=== PATIENT | male | born 1965 | race Caucasian/White ===

== ENCOUNTER → 2019-07-30 08:52 | Outpatient (CLI) | payer OTHER, SELFPAY ==
--- NOTE | ~2019-07-30 | XR_ITS ---
EXAMINATION: XR shoulder RT min 2V INDICATION: Chronic right shoulder pain TECHNIQUE: Four views of the right shoulder are submitted. COMPARISON: None FINDINGS: Normal alignment. No fracture. Glenohumeral and acromioclavicular joint spaces are normal. Soft tissues are unremarkable. IMPRESSION: No acute osseous abnormality. Reviewed, dictated and finalized at location A.
== END ==
PROVIDERS: PCP Physician Assistant; Visit Provider Physician Assistant
DX: M25.511 Pain in right shoulder (principal)
CPT/HCPCS: 73030

== ENCOUNTER 2020-02-20 10:22 | Emergency (ER) | payer OTHER, SELFPAY ==
[2020-02-20 10:28] VITALS: BP 142/94; PULSE 83; RESP 18; TEMP 36.5; O2SAT 100
--- NOTE | 2020-02-20 11:43 | ED.NAVMDI ---
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 Patient states he has 1/2-week history of first nausea & vomiting x2- 3/day at onset only- that is since resolved. This is associated with diarrhea now mostly loose stools x1/day, the last yesterday. In addition he has noted the onset of her pink, itchy, mostly flat rash on his buttocks, that is unlike prior urticaria, seems to be extending slightly upwards centrally, downwards his right posterior thigh. No fever, abdominal pain, prior surgeries, travel history, loss of taste/smell, cough, shortness of breath; he had a prior normal colonoscopy showing diverticulosis . Related Data Home Medications Medication Instructions Recorded Confirmed omeprazole magnesium 20 mg 20 mg PO DAILY 06/09/19 02/20/20 tablet,delayed release Allergies Allergy/AdvReac Type Severity Reaction Status Date / Time gluten Allergy Unknown rash and Verified 02/20/20 10:47 GI issues shellfish derived AdvReac Intermediate Rash Verified 02/20/20 10:47 Review of Systems Review of Systems: Narrative: The patient has been informed that they may have pre-hypertension or Hypertension based on a BP reading in the department. I recommend that the patient call the primary care provider listed on their discharge instructions or a physician of their choice this week to arrange follow up for further evaluation of possible pre-hypertension or Hypertension General/Constitutional: No weight loss,fever Eyes: N0: Redness,discharge Ears/Nose/Throat: No: Epistaxis,ear discharge Respiratory: Denies: Hemoptysis Gastrointestinal: No Vomiting, Bleeding-rectal now Skin: No Lumps, REPORTS eruption Neurologic: No Focal Weakness,Sz Hematologic: Denies: Petechiae/Purpura Psychiatric: No: Suicida ideationl All Other Systems: Reviewed and Negative [facility] Social History Social History Smoking status: Former smoker Smoking end date: 05/18/89 Alcohol intake: current Drinks per week: 4 Substance use: never Substance use type: does not use Gender identity (if verbalized by the patient): Male Comments At time of signature, agree with nursing past medical, surgical, social and family history. There is no relevant family history pertinent to the presenting complaint Exam Narrative: Exam Narrative: General Appearance: Well appearing, Conjunctiva clear Mouth/Throat: Normal appearing, Normal lips, Supple Respiratory: Airway patent, No respiratory distress Abdomen: Soft, Musculoskeletal: Full strength Skin: Warm, Dry blanching, mostly macular & MP eruption of posterior waist with definite border and occ satellite lesion on upper and lower borders. Neurological: A&O x3, Normal affect Course Vital Signs Vital signs: Vital Signs Temperature 97.7 F 02/20/20 10:28 Pulse Rate 83 02/20/20 10:28 Respiratory Rate 18 02/20/20 10:28 Blood Pressure 142/94 H 02/20/20 10:28 Pulse Oximetry 100 02/20/20 10:28 Temperature 97.7 F 02/20/20 10:28 Pulse Rate 83 02/20/20 10:28 Respiratory Rate 18 02/20/20 10:28 Blood Pressure 142/94 H 02/20/20 10:28 Pulse Oximetry 100 02/20/20 10:28 MDM - Nausea/Vomiting/Diarrhea Lab Data Labs: Influenza A Screen Negative Reference Range: Negative Influenza B Screen Negative Reference Range: Negative Discharge Plan Discharge Clinical Impression: Rash Patient Disposition: Home, Self-Care Condition: Stable Instructions: Cellulitis (ED) Additional Instructions: Stop clindamycin if diarrhea reccurs, keep photo log of area Get/
== END 2020-02-20 11:30 | disposition home or self-care (01) ==
PROVIDERS: Emergency Provider Emergency Medicine; PCP Family Medicine
DX: R21 Rash and other nonspecific skin eruption (principal); Z87.891 Personal history of nicotine dependence
CPT/HCPCS: 87804; 99213; G0463

== ENCOUNTER 2020-02-21 06:55 | Outpatient (NON) | payer OTHER, SELFPAY ==
[2020-02-21 18:17] LABS: SARS-CoV-2 RNA PCR Negative
== END 2020-02-21 06:56 ==
PROVIDERS: PCP Family Medicine; Visit Provider Emergency Medicine
DX: Z20.828 Contact with and (suspected) exposure to other viral communicable diseases (principal); R19.7 Diarrhea, unspecified
CPT/HCPCS: 87635; C9803; U0003

== ENCOUNTER 2020-04-02 09:36 | Outpatient (CLI) | payer OTHER, SELFPAY ==
[2020-04-02 10:12] LABS: Basophils Percent Auto 0.5 % (0.2-1.2); Eosinophils Absolute Auto 0.2 K/mm3 (0-0.3); Eosinophils Percent Auto 2.1 % (0-4.4); Hemoglobin 14.8 g/dL (14.0-18.0); Immature Granulocyte Absolute 0.02 K/mm3 (0.00-0.031); Immature Granulocyte Percent A 0.2 % (0-0.5); Lymphocytes Absolute Auto 1.68 K/mm3 (0.9-3.2); Lymphocytes Percent Auto 20.6 % (18.3-44.2); Mean Corpuscular HGB Conc 32.9 g/dl (32-36); Mean Corpuscular Hemoglobin 26.4 pg (26-34); Mean Corpuscular Volume 80.4 fl (80-100); Mean Platelet Volume 9.5 fl (7.4-10.4); Monocytes Absolute Auto 0.5 K/mm3 (0.1-0.6); Monocytes Percent Auto 5.9 % (2.6-8.5); Neutrophils Absolute Auto 5.8 K/mm3 (1.3-6.7); Neutrophils Percent Auto 70.7 % (45.5-73.1); Platelet Count Result 343 k/mm3 (150-375); Red Cell Distribution Width 15.6 % (11.5-14.5); White Blood Count 8.1 K/mm3 (4.5-10.0)
[2020-04-02 10:14] LABS: Add Urine Microscopic? NO; Appearance Urine Clear (Clear); Bilirubin Urine Negative (Negative); Blood Urine Negative (Negative); Color Urine Straw (Yellow); Glucose Urine UA Negative (Negative); Ketones Urine Negative (Negative); Leukocyte Esterase Ur Negative LEU/UL (NEGATIVE); Nitrate Urine Negative (Negative); Protein Urine Negative (Negative); Specific Grav Ur 1.008 (1.001-1.035); Urobilinogen Urine Negative mg/dL (<2.0)
[2020-04-02 10:24] LABS: Alanine Aminotransferase 24 U/L (4-50); Albumin Level 4.2 g/dL (3.5-5.1); Alkaline Phosphatase 70 U/L (38-126); Anion Gap 9 mmol/L (8-16); Aspartate Amino Transferase 27 U/L (17-59); Blood Urea Nitrogen 12 mg/dL (9-20); Calcium 9.4 mg/dL (8.4-10.2); Carbon Dioxide 30 mmol/L (22-30); Chloride 99 mmol/L (98-107); Cholesterol 191 mg/dL (0-200); Estimated Glomerular Filt Rate > 60; Glucose 95 mg/dL (75-110); HDL Direct 40 mg/dL; Potassium 4.4 mmol/L (3.4-5.0); Sodium 138 mmol/L (137-145); Triglycerides 82 mg/dL (<150)
[2020-04-02 10:35] LABS: LDL Cholesterol Direct 140 mg/dL
[2020-04-02 10:55] LABS: Prostate Specific Antigen 0.4 ng/mL (< OR = 4.0); Thyroid Stimulating Hormone 0.813 uIU/mL (0.465-4.680)
[2020-04-02 11:39] LABS: Folic Acid > 20.0 ng/mL (2.76->20)
== END 2020-04-02 09:37 | disposition home or self-care (01) ==
LOC: ANHLAB 09:38
PROVIDERS: PCP Family Medicine; Visit Provider Physician Assistant
DX: Z00.00 Encounter for general adult medical examination without abnormal findings (principal); R20.2 Paresthesia of skin
CPT/HCPCS: 36415; 80053; 80061; 81003; 82607; 82746; 84153; 84443; 85025; G0103

== ENCOUNTER 2020-07-23 10:03 | Outpatient (CLI) | payer OTHER, SELFPAY | END 2020-07-23 10:04 | disposition home or self-care (01) | LOC: ANHCOVIDVC 10:03 | PROVIDERS: PCP Family Medicine | DX: Z23 Encounter for immunization (principal) | CPT/HCPCS: 0001A; 91300 ==

== ENCOUNTER 2020-08-13 09:57 | Outpatient (CLI) | payer OTHER, SELFPAY | END 2020-08-13 09:58 | disposition home or self-care (01) | LOC: ANHCOVIDVC 09:57 | PROVIDERS: PCP Family Medicine | DX: Z23 Encounter for immunization (principal) | CPT/HCPCS: 0002A; 91300 ==

== ENCOUNTER 2020-12-31 10:03 | Outpatient (CLI) | payer OTHER, SELFPAY ==
[2020-12-31 10:36] LABS: Alanine Aminotransferase 17 U/L (4-50); Albumin Level 4.2 g/dL (3.5-5.1); Alkaline Phosphatase 56 U/L (38-126); Anion Gap 4 mmol/L (8-16); Aspartate Amino Transferase 21 U/L (17-59); Bilirubin,Total 0.6 mg/dL (0.2-1.3); Blood Urea Nitrogen 8 mg/dL (9-20); Calcium 8.5 mg/dL (8.4-10.2); Carbon Dioxide 25 mmol/L (22-30); Chloride 106 mmol/L (98-107); Cholesterol 170 mg/dL (0-200); Estimated Glomerular Filt Rate > 60; Glucose 95 mg/dL (65-110); HDL Direct 39 mg/dL; Potassium 4.1 mmol/L (3.4-5.0); Sodium 135 mmol/L (137-145); Triglycerides 78 mg/dL (<150)
[2020-12-31 10:47] LABS: LDL Cholesterol Direct 99 mg/dL
== END 2020-12-31 10:04 | disposition home or self-care (01) ==
LOC: ANHLAB 10:05
PROVIDERS: PCP Family Medicine; Visit Provider Physician Assistant
DX: E78.00 Pure hypercholesterolemia, unspecified (principal); K21.9 Gastro-esophageal reflux disease without esophagitis; I10 Essential (primary) hypertension
CPT/HCPCS: 36415; 80053; 80061

== ENCOUNTER 2021-03-06 11:44 | Emergency (ER) | payer OTHER, SELFPAY ==
[2021-03-06 12:01] VITALS: BP 128/85; PULSE 105; RESP 18; TEMP 38; O2SAT 100
--- NOTE | 2021-03-06 12:09 | ED.NAVMDI ---
HPI - Nausea/Vomiting/Diarrhea General Chief complaint: Nausea/Vomiting/Diarrhea Stated complaint: Vomiting,Diarhea,Body Aches Time Seen by Provider: 03/06/21 12:09 Source: patient Mode of arrival: ambulatory Limitations: no limitations History of Present Illness HPI Narrative: Donte Monaco is a 55 yo male with a PMH of GERD, hypertension, who comes to [facility] with dry cough that prior , has nausea vomiting diarrhea and a fever. States he feels terrible and has had symptoms for 2 days-he was exposed to someone at work that had Covid but he has been vaccinated for both Covid and flu Related Data Allergies Allergy/AdvReac Type Severity Reaction Status Date / Time gluten Allergy Unknown rash and Verified 03/06/21 12:28 GI issues Review of Systems Review of Systems: CONSTITUTIONAL: Denies fever, chills, sweats. EYES: Denies visual changes, redness, discharge. ENT: Denies rhinorrhea, has congestion, has sore throat, otalgia. CARDIOVASCULAR: Denies chest pain, palpitations, edema. RESPIRATORY: Denies dyspnea, wheezing, has cough GASTROINTESTINAL: Denies abdominal pain, has nausea, has vomiting, has diarrhea. GENITOURINARY: Denies dysuria, hematuria, abnormal discharge SKIN: Denies rash or itching. NEUROLOGIC: Denies numbness, or focal weakness. PSYCHIATRIC: Denies anxiety or depression. PMFSH Past Medical History Medical History Diverticulitis Essential hypertension GERD (gastroesophageal reflux disease) Social History Social History Smoking packs per day: 0.5 Smoking cigarettes per day: 10.0 Years smoked: 15 Smoking pack-years: 7.50 Smoking status: Former smoker Tobacco type: cigarettes Second hand tobacco smoke exposure: No Smoking end date: 05/18/89 Alcohol intake: former Drinks per week: 4 Substance use: never Substance use type: does not use Gender identity (if verbalized by the patient): Male Sexual Orientation (if Verbalized by the Patient): Straight or Heterosexual Comments At time of signature, I agree with nursing past medical, surgical, social and family history. There is no relevant family history pertinent to the presenting complaint. Exam Narrative: GENERAL: This is a well-nourished, well-developed patient, in mild distress. Has myalgias generally not feeling well HEAD: normocephalic, atraumatic. EYES:Sclera clear/white. Vision is grossly intact. EARS: External ears normal, auditory canals erythema and without drainage, TMs normal without perforation. Hearing grossly intact. NOSE: External nose normal without nasal discharge, nares with redness, no rhinorrhea. THROAT: Mucous membranes moist, posterior pharynx erythema NECK: Neck supple, non-tender CARDIOVASCULAR: Tachycardia rate and rhythm without murmurs, gallops, or rubs. RESPIRATORY: Clear to auscultation. Breath sounds equal bilaterally. No wheezes, rales, or rhonchi. GASTROINTESTINAL: Abdomen soft, non-tender, good bowel sounds SKIN: warm, intact with no suspicious lesions or rash, good texture and turgor. NEURO: awake, alert, and oriented to person, place and time. There were no obvious focal neurologic abnormalities. Steady gait EXTREMITIES: Normal range of motion. BACK: Nontender without deformity Course Course Emergency Course: Patient comes to [facility] with complaints of abdominal discomfort general myalgias fever nausea vomiting and diarrhea he has a dry cough that is somewhat resolved Patient test positive for Covid Patient test negative for flu Started on steroids, Tessalon, Zofran, Imodium Work excuse given Vital Signs Vital signs: Vital Signs Temperature 100.4 F H 03/06/21 12:01 Pulse Rate 105 H 03/06/21 12:01 Respiratory Rate 18 03/06/21 12:01 Blood Pressure 128/85 03/06/21 12:01 Pulse Oximetry 100 03/06/21 12:01 Temperature 100.4 F H 03/06/21 12:01 Pul
== END 2021-03-06 12:41 | disposition home or self-care (01) ==
PROVIDERS: Emergency Provider Nurse Practitioner; PCP Family Medicine
DX: U07.1 COVID-19 (principal); K21.9 Gastro-esophageal reflux disease without esophagitis; I10 Essential (primary) hypertension; F17.210 Nicotine dependence, cigarettes, uncomplicated
CPT/HCPCS: 87426; 99213; C9803; G0463

== ENCOUNTER 2021-03-16 16:12 | Emergency (ER) | payer OTHER, SELFPAY ==
--- NOTE | 2021-03-16 16:17 | ED.URI ---
HPI - URI/Sore Throat General Chief Complaint: Upper Respiratory Infection Stated Complaint: covid symptoms Time Seen by Provider: 03/16/21 16:17 Source: patient, family and RN notes reviewed Mode of arrival: ambulatory Limitations: no limitations History of Present Illness HPI Narrative: 55 yo male presents to the [facility] after testing positive for covid 10 days ago with C/O continued fatigue. Patient states that he is feeling better than he did 10 days ago. Had not run a fever in about 8 days. Had followed up with his primary who prescribed nebulizer treatments and a additional cough pills. Patient states that he thought that once 10 to 14 days has passed that he would be feeling all better. Still no smell, decreased taste, states the fatigue is the worst. Everything else is better. Denies any chest pain, abdominal pain. Related Data Allergies Allergy/AdvReac Type Severity Reaction Status Date / Time gluten Allergy Unknown rash and Verified 03/16/21 17:20 GI issues Review of Systems Review of Systems: All systems reviewed & are unremarkable except as noted in HPI and below Constitutional: Constitutional: Reports no additional constitutional complaints, Denies chills and Denies fever(s) Eyes: Eyes: Reports no additional eye complaints ENT: Reports system reviewed and no additional complaints, except as documented Cardiovascular: Cardiovascular: Reports no additional cardiovascular complaints and Denies chest pain Respiratory: Respiratory: Reports no additional respiratory complaints, Denies cough and Denies dyspnea Gastrointestinal: Gastrointestinal: Reports no additional gastrointestinal complaints, Denies abdominal pain, Denies diarrhea, Denies nausea and Denies vomiting Musculoskeletal: Musculoskeletal: Reports no additional musculoskeletal complaints Integumentary/Breasts: Skin/Breast: Reports system reviewed and no additional complaints, except as docu Neurologic: Reports system reviewed and no additional complaints, except as documented Psychiatric: Psychiatric: Reports no additional psychiatric complaints Endocrine: Endocrine: Reports as per HPI and Reports fatigue Allergic/Immunologic: Allergic/Immunologic: Reports no additional allergic/immunologic complaints [facility] Past Medical History Medical History Diverticulitis Essential hypertension GERD (gastroesophageal reflux disease) Social History Social History Smoking packs per day: 0.5 Smoking cigarettes per day: 10.0 Years smoked: 15 Smoking pack-years: 7.50 Smoking status: Former smoker Tobacco type: cigarettes Second hand tobacco smoke exposure: No Smoking end date: 05/18/89 Alcohol intake: former Drinks per week: 4 Substance use: never Substance use type: does not use Gender identity (if verbalized by the patient): Male Sexual Orientation (if Verbalized by the Patient): Straight or Heterosexual Comments At the time of my signature, I reviewed and agree with the nursing past medical, surgical, social, and family history. There is no relevant family history pertinent to the patient complaint. Exam Const: General: healthy appearing, no acute distress and alert Nutritional Appearance: well nourished Orientation/consciousness: patient oriented x3 Limitations: no limitations HENMT: Head: normal to inspection Ears: external ears normal, TM's normal bilaterally and EAC's normal Eyes: Conjunctivae: conjunctivae normal Pupils: Equal, round and reactive pupils present Neck: Neck: normal visual inspection, no lymphadenopathy and no meningeal signs Chest: Chest palpation & inspection: normal inspection of the chest Resp: Effort & Inspection: normal respiratory effort and no use of accessory muscles Auscultation: clear to auscultation bilaterally, no crackles, no rales, no rhonchi and no wheezes Cardio: Rate
[2021-03-16 16:22] VITALS: BP 118/88; PULSE 100; RESP 18; TEMP 36.8; O2SAT 98
== END 2021-03-16 16:50 | disposition home or self-care (01) ==
PROVIDERS: Emergency Provider Nurse Practitioner; PCP Family Medicine
DX: R53.83 Other fatigue (principal); U09.9 Post COVID-19 condition, unspecified; Z87.891 Personal history of nicotine dependence; I10 Essential (primary) hypertension; K21.9 Gastro-esophageal reflux disease without esophagitis
CPT/HCPCS: 99213; G0463

== ENCOUNTER 2021-07-12 10:32 | Outpatient (CLI) | payer OTHER, SELFPAY ==
[2021-07-12 10:53] LABS: Hemoglobin 12.2 g/dL (14.0-18.0); Mean Corpuscular HGB Conc 32.1 g/dl (32-36); Mean Corpuscular Hemoglobin 26.5 pg (26-34); Mean Corpuscular Volume 82.6 fl (80-100); Mean Platelet Volume 9.5 fl (7.4-10.4); Platelet Count Result 292 k/mm3 (150-375); Red Cell Distribution Width 14.6 % (11.5-14.5); White Blood Count 6.1 K/mm3 (4.5-10.0)
[2021-07-12 10:56] LABS: Add Urine Microscopic? NO; Appearance Urine Clear (Clear); Bilirubin Urine Negative (Negative); Blood Urine Negative (Negative); Color Urine Straw (Yellow); Glucose Urine UA Negative (Negative); Ketones Urine Negative (Negative); Leukocyte Esterase Ur Negative LEU/UL (NEGATIVE); Nitrate Urine Negative (Negative); Protein Urine Negative (Negative); Specific Grav Ur 1.005 (1.001-1.035); Urobilinogen Urine Negative mg/dL (<2.0)
[2021-07-12 11:14] LABS: Alanine Aminotransferase 23 U/L (4-50); Alkaline Phosphatase 63 U/L (38-126); Anion Gap 7 mmol/L (8-16); Aspartate Amino Transferase 26 U/L (17-59); Blood Urea Nitrogen 10 mg/dL (9-20); Calcium 8.9 mg/dL (8.4-10.2); Carbon Dioxide 29 mmol/L (22-30); Chloride 100 mmol/L (98-107); Cholesterol 176 mg/dL (0-200); Estimated Glomerular Filt Rate > 60; Glucose 91 mg/dL (65-110); HDL Direct 42 mg/dL; Potassium 3.9 mmol/L (3.4-5.0); Sodium 136 mmol/L (137-145); Triglycerides 100 mg/dL (<150)
[2021-07-12 11:30] LABS: LDL Cholesterol Direct 113 mg/dL
[2021-07-12 12:00] LABS: Prostate Specific Antigen 0.4 ng/mL (< OR = 4.0)
== END 2021-07-12 10:33 | disposition home or self-care (01) ==
LOC: ANHLAB 10:35
PROVIDERS: PCP Family Medicine; Visit Provider Physician Assistant
DX: Z00.00 Encounter for general adult medical examination without abnormal findings (principal); K21.9 Gastro-esophageal reflux disease without esophagitis; I10 Essential (primary) hypertension
CPT/HCPCS: 36415; 80053; 80061; 81003; 84153; 84443; 85027

== ENCOUNTER 2021-08-19 00:35 | Day surgery (SDC) | payer OTHER, SELFPAY ==
[2021-08-07 13:22] VITALS: BMI 29.9
[2021-08-19 09:43] VITALS: BP 137/87; PULSE 76; RESP 20; TEMP 36.1; O2SAT 100; BMI 30.4
--- NOTE | 2021-08-19 09:43 | WPDGICN ---
Assessment and Plan Assessment and plan (1) Encounter for screening colonoscopy: Code(s): Z12.11 - Encounter for screening for malignant neoplasm of colon Status: Acute Assessment and Plan: Patient presents today for screening colonoscopy. His been 10 years since last exam. He gives a history of diverticulitis in the intervening time. Plan is for high-fiber diet. Further recommendations may be given after endoscopy. GI Consult Note Consult date/time: 08/19/21 09:43 HPI: Donte Monaco is a 55 year old male Presents for screening colonoscopy. Patient's current weight appetite bowel movements are normal. He denies abdominal pain. He has had no bleeding. His last colonoscopy was 2010. Patient reports episode of diverticulitis 2019. He has had other episodes of abdominal pain treated with antibiotics. These may have represented diverticulitis as well. Patient presents today for neoplasia screening. Review of Systems Review of Systems: All systems reviewed & are unremarkable except as noted in HPI and below PMFSH Past Medical History Medical History Diverticulitis Essential hypertension GERD (gastroesophageal reflux disease) Social History Social History Smoking packs per day: 0.5 Smoking cigarettes per day: 10.0 Years smoked: 15 Smoking pack-years: 7.50 Smoking status: Never smoker Tobacco type: cigarettes Second hand tobacco smoke exposure: No Smoking end date: 05/18/89 Alcohol intake: former Drinks per week: 4 Substance use: never Substance use type: does not use Living arrangements: with family Gender identity (if verbalized by the patient): Male Sexual Orientation (if Verbalized by the Patient): Straight or Heterosexual Spiritual care concerns: No Meds Home Medications and Allergies Home Medications Medication Instructions Recorded Confirmed Type omeprazole 40 mg capsule,delayed 40 mg PO DAILY #90 cap 02/27/21 08/07/21 Rx release hydrochlorothiazide 12.5 mg capsule 12.5 mg PO DAILY #30 cap 05/14/21 08/07/21 Rx Allergies Allergy/AdvReac Type Severity Reaction Status Date / Time gluten Allergy Unknown rash and Verified 08/19/21 09:42 GI issues Exam Narrative: Physical exam reveals patient be alert. By title signs stable. HEENT exam is unremarkable. Patient is anicteric. Lungs are clear clear to auscultate patient and percussion. Heart is without sounds. Abdominal exam bowel sounds are present soft nontender with no hepatosplenomegaly. Digital external rectal exam and is normal.
[2021-08-19] MEDS: LACTATED RINGERS 1,000 ML 150 ML IV CONT (09:54)
--- NOTE | 2021-08-19 10:11 | P.PNAN_ITS ---
Anes - Initial Pre Proc Eval Procedure: Operation Date: 08/19/21 10:45 Proposed Procedures p Screening Colonoscopy - Adalberto Garcia MD Date/Time: 08/19/21 10:11 Surgeon: Adalberto Garcia MD Pre Op Diagnosis: neoplasm screening Patient Data Age: 55 Gender: M Height: 1.75 m Weight: 93.7 kg Last Vital Signs Temp 97.0 F L 08/19/21 09:43 Pulse 76 08/19/21 09:43 Resp 20 08/19/21 09:43 BP 137/87 08/19/21 09:43 Pulse Ox 100 08/19/21 09:43 Allergies Allergy/AdvReac Type Severity Reaction Status Date / Time gluten Allergy Unknown rash and Verified 08/19/21 09:42 GI issues Home Medications Medication Instructions Recorded Confirmed Type omeprazole 40 mg capsule,delayed 40 mg PO DAILY #90 cap 02/27/21 08/07/21 Rx release hydrochlorothiazide 12.5 mg capsule 12.5 mg PO DAILY #30 cap 05/14/21 08/07/21 Rx Patient hx anesthesia problems: none Family hx anesthesia problems: none Results Review: All pre-operative results and documents have been reviewed as part of the pre-operative evaluation. [facility] Past Medical History Medical History Diverticulitis Essential hypertension GERD (gastroesophageal reflux disease) Social History Social History Smoking packs per day: 0.5 Smoking cigarettes per day: 10.0 Years smoked: 15 Smoking pack-years: 7.50 Smoking status: Never smoker Tobacco type: cigarettes Second hand tobacco smoke exposure: No Smoking end date: 05/18/89 Alcohol intake: former Drinks per week: 4 Substance use: never Substance use type: does not use Living arrangements: with family Gender identity (if verbalized by the patient): Male Sexual Orientation (if Verbalized by the Patient): Straight or Heterosexual Spiritual care concerns: No Anes - Eval Final PreProcedure Day of Procedure 08/19/21 10:11 Patient weight: obese Heart: regular rate and rhythm Lungs: clear to auscultation Airway: Mallampati scale class III Neurological: alert and oriented Last oral intake: >/= 8 hours ASA classification: III Emergent: no Anesthetic plan: proceed Anesthesia type and monitoring: general GIVS and standard monitoring Results Review: All pre-operative results and documents have been reviewed as part of the pre-operative evaluation. Informed Consent: The patient's anesthetic plan and its attendant risks and benefits were discussed with the patient/family/POA. Questions were solicited and answers provided to the satisfaction of the patient/family/POA.
[2021-08-19 10:47] VITALS: BP 110/72; PULSE 68; RESP 21; O2SAT 100
[2021-08-19 10:57] VITALS: BP 115/75; PULSE 65; RESP 18; O2SAT 100
[2021-08-19 11:07] VITALS: BP 120/86; PULSE 64; RESP 19; O2SAT 100
== END 2021-08-19 11:27 | disposition home or self-care (01) ==
PROVIDERS: PCP Family Medicine; Visit Provider Internal Medicine Gastroenterology
PROC: 0DJD8ZZ Inspection of Lower Intestinal Tract, Via Natural or Artificial Opening Endoscopic (ICD-10-PCS; CPT 45378; principal; 2021-08-19 10:45)
DX: Z12.11 Encounter for screening for malignant neoplasm of colon (principal); K63.5 Polyp of colon; K57.30 Diverticulosis of large intestine without perforation or abscess without bleeding; I10 Essential (primary) hypertension; K21.9 Gastro-esophageal reflux disease without esophagitis; Z87.891 Personal history of nicotine dependence; E66.9 Obesity, unspecified; Z68.30 Body mass index [BMI] 30.0-30.9, adult
CPT/HCPCS: 45385; 88305; J2704; J7120

== ENCOUNTER 2022-01-01 15:21 | Emergency (ER) | payer OTHER, SELFPAY ==
--- NOTE | 2022-01-01 15:37 | ED.EXTPRO ---
HPI - Extremity Problem General Chief complaint: Extremity Problem,Nontraumatic Stated complaint: Lightheaded,Gas,Tingling Bilateral Arms Time Seen by Provider: 01/01/22 15:37 History of Present Illness HPI Narrative: Donte Monaco is a 56 yo male with a PMH of GERD, HTN, post COVID fatigue, [facility] with complaint of bilateral arm tingling, light-headedness, worsening GERD. He had covid in February and he has follow-up with a doctor on Thursday. Patient denies any shortness of breath any change in sensortium; is fatigued and has been sleeping all day states he feels fine when he is laying flat Blood pressure up the highest has been 135/89 Related Data Allergies Allergy/AdvReac Type Severity Reaction Status Date / Time gluten Allergy Unknown rash and Verified 01/01/22 15:30 GI issues Review of Systems Review of Systems: CONSTITUTIONAL: Denies fever, chills, sweats. Lightheadedness EYES: Denies visual changes, redness, discharge. ENT: Denies rhinorrhea, congestion, sore throat, otalgia. CARDIOVASCULAR: Denies chest pain, palpitations, edema. RESPIRATORY: Denies dyspnea, wheezing, cough GASTROINTESTINAL: Denies abdominal pain, nausea, vomiting, diarrhea. GENITOURINARY: Denies dysuria, hematuria, abnormal discharge SKIN: Denies rash or itching. NEUROLOGIC: Denies numbness, or focal weakness. PSYCHIATRIC: Denies anxiety or depression. Bilateral arm tingling PMFSH Past Medical History Medical History Diverticulitis Essential hypertension GERD (gastroesophageal reflux disease) Post-COVID chronic fatigue Social History Social History Smoking packs per day: 0.5 Smoking cigarettes per day: 10.0 Years smoked: 15 Smoking pack-years: 7.50 Smoking status: Never smoker Tobacco type: cigarettes Second hand tobacco smoke exposure: No Smoking end date: 05/18/89 Alcohol intake: former Drinks per week: 4 Substance use: never Substance use type: does not use Gender identity (if verbalized by the patient): Male Sexual Orientation (if Verbalized by the Patient): Straight or Heterosexual Spiritual care concerns: No Exam Narrative: GENERAL: This is a well-nourished, well-developed patient, in mild distress. HEAD: normocephalic, atraumatic. EYES: PERRL. Sclera clear/white. Vision is grossly intact. EARS: External ears normal, auditory canals c have some cerumen and without drainage, TMs normal without perforation. Hearing grossly intact. NOSE: External nose normal mild congestion without nasal discharge, nares without redness, no rhinorrhea. THROAT: Mucous membranes moist, posterior pharynx pink NECK: Neck supple, non-tender CARDIOVASCULAR: Regular rate and rhythm without murmurs, gallops, or rubs. RESPIRATORY: Clear to auscultation. Breath sounds equal bilaterally. No wheezes, rales, or rhonchi. GASTROINTESTINAL: Not done SKIN: warm, intact with no suspicious lesions or rash, good texture and turgor. NEURO: awake, alert, and oriented to person, place and time. There were no obvious focal neurologic abnormalities. Steady gait EXTREMITIES: Normal range of motion. BACK: Nontender without deformity Course Course Emergency Course: Patient comes to the lightheadedness, tingling in her fingers, has GERD Blood pressure normal, post COVID exhaustion, EKG normal, rate is 91, no ST changes LA interval normal QRS normal no QT prolongation Patient started on Protonix, meclizine, to use Debrox for the next 4 to 5 days to loosen some of the earwax, Patient told if develop shortness of breath or increased symptoms to go to the ER for further evaluation Level of Care: Express Care Visit Vital Signs Vital signs: Vital Signs Temperature 97.6 F 01/01/22 15:53 Pulse Rate 103 H 01/01/22 15:53 Respiratory Rate 24 H 01/01/22 15:53 Blood Pressure 128/94 H 01/01/22 15:53 Pulse Oximetry 100
[2022-01-01 15:53] VITALS: BP 128/94; PULSE 103; RESP 24; TEMP 36.4; O2SAT 100
--- NOTE | 2022-01-01 15:56 | ECG_ITS ---
Measurements Intervals [place] Rate: 91 P: 52 PA: 140 QRS: 25 QRSD: 86 T: 41 QT: 324 QTc: 399 Interpretive Statements SINUS RHYTHM NORMAL ECG NO PREVIOUS ECG AVAILABLE FOR COMPARISON Electronically Signed On 01-02-2022 9:32:58 CDT by Jose Miguel Connors M.D.
== END 2022-01-01 16:04 | disposition home or self-care (01) ==
PROVIDERS: Emergency Provider Nurse Practitioner; PCP Family Medicine
DX: R42 Dizziness and giddiness (principal); K21.9 Gastro-esophageal reflux disease without esophagitis; I10 Essential (primary) hypertension; Z86.16 Personal history of COVID-19; Z87.891 Personal history of nicotine dependence
CPT/HCPCS: 93005; 99213; G0463

== ENCOUNTER 2022-01-06 09:39 | Outpatient (CLI) | payer OTHER, SELFPAY ==
[2022-01-06 11:41] LABS: Alanine Aminotransferase 19 U/L (6-50); Albumin Level 4.4 g/dL (3.5-5.1); Alkaline Phosphatase 67 U/L (38-126); Anion Gap 10 mmol/L (8-16); Aspartate Amino Transferase 24 U/L (17-59); Bilirubin,Total 0.9 mg/dL (0.2-1.3); Blood Urea Nitrogen 8 mg/dL (9-20); Calcium 9.2 mg/dL (8.4-10.2); Carbon Dioxide 29 mmol/L (22-30); Chloride 98 mmol/L (98-107); Estimated Glomerular Filt Rate > 60; Glucose 92 mg/dL (65-110); Potassium 4.2 mmol/L (3.4-5.0); Sodium 137 mmol/L (137-145)
== END 2022-01-06 09:40 | disposition home or self-care (01) ==
PROVIDERS: PCP Family Medicine; Visit Provider Physician Assistant
DX: R42 Dizziness and giddiness (principal); I10 Essential (primary) hypertension
CPT/HCPCS: 36415; 80053; 84443

== ENCOUNTER 2022-03-14 01:49 | Day surgery (SDC) | payer OTHER, SELFPAY ==
[2022-02-27 09:28] VITALS: BMI 28.8
[2022-03-14 11:00] VITALS: BMI 29.5
[2022-03-14 11:03] VITALS: BP 134/90; PULSE 68; RESP 18; TEMP 36.1; O2SAT 100
[2022-03-14] MEDS: LACTATED RINGERS 1,000 ML 150 ML IV CONT (11:15)
--- NOTE | 2022-03-14 11:19 | WPDHPUPDATE1 ---
History and Physical Update Update Date/Time: 03/14/22 11:19 History and Physical has been reviewed, including an updated exam of the patient. There are NO changes in the patient's condition. Risks, benefits, and alternatives have been discussed and questions answered. Patient agrees to proceed with procedure.
--- NOTE | 2022-03-14 12:09 | P.PNAN_ITS ---
Anes - Initial Pre Proc Eval Procedure: Operation Date: 03/14/22 12:30 Proposed Procedures p Esophagogastroduodenoscopy EGD - Adalberto Garcia MD Date/Time: 03/14/22 12:09 Surgeon: Adalberto Garcia MD Pre Op Diagnosis: GERD Patient Data Age: 56 Gender: M Height: 1.78 m Weight: 93.5 kg Last Vital Signs Temp 97 F L 03/14/22 11:03 Pulse 68 03/14/22 11:03 Resp 18 03/14/22 11:03 BP 134/90 03/14/22 11:03 Pulse Ox 100 03/14/22 11:03 O2 Del Method Room Air 03/14/22 11:03 Allergies Allergy/AdvReac Type Severity Reaction Status Date / Time gluten Allergy Severe rash and Verified 03/14/22 10:59 GI issues Home Medications Medication Instructions Recorded Confirmed Type omeprazole 40 mg capsule,delayed 40 mg PO BID #180 caps 01/27/22 03/11/22 Rx release Patient hx anesthesia problems: none Family hx anesthesia problems: none Results Review: All pre-operative results and documents have been reviewed as part of the pre- operative evaluation. [facility] Past Medical History Medical History Diverticulitis Essential hypertension GERD (gastroesophageal reflux disease) Post-COVID chronic fatigue Social History Social History Smoking packs per day: 0.5 Smoking cigarettes per day: 10.0 Years smoked: 15 Smoking pack-years: 7.50 Smoking status: Former smoker Tobacco type: cigarettes Second hand tobacco smoke exposure: No Smoking end date: 05/18/89 Alcohol intake: former Drinks per week: 4 Alcohol use details: [place] Substance use: never Substance use type: does not use Living arrangements: with family Gender identity (if verbalized by the patient): Male Sexual Orientation (if Verbalized by the Patient): Straight or Heterosexual Spiritual care concerns: No Anes - Eval Final PreProcedure Day of Procedure 03/14/22 12:09 Patient weight: overweight Heart: regular rate and rhythm Lungs: clear to auscultation Airway: Mallampati scale class II Neurological: alert and oriented Last oral intake: >/= 8 hours ASA classification: II Emergent: no Anesthetic plan: proceed Anesthesia type and monitoring: general GIVS and standard monitoring Results Review: All pre-operative results and documents have been reviewed as part of the pre- operative evaluation. Informed Consent: The patient's anesthetic plan and its attendant risks and benefits were discussed with the patient/family/POA. Questions were solicited and answers provided to the satisfaction of the patient/family/POA.
[2022-03-14 12:29] VITALS: BP 115/91; PULSE 63; RESP 16; O2SAT 97
[2022-03-14 12:39] VITALS: BP 125/81; PULSE 58; RESP 17; O2SAT 98
[2022-03-14 12:49] VITALS: BP 125/87; PULSE 59; RESP 17; O2SAT 100
== END 2022-03-14 13:07 | disposition home or self-care (01) ==
PROVIDERS: PCP Family Medicine; Visit Provider Internal Medicine Gastroenterology
PROC: 0DJ08ZZ Inspection of Upper Intestinal Tract, Via Natural or Artificial Opening Endoscopic (ICD-10-PCS; CPT 43235; principal; 2022-03-14 12:30)
DX: K21.00 Gastro-esophageal reflux disease with esophagitis, without bleeding (principal); Q39.4 Esophageal web; I10 Essential (primary) hypertension; G93.32 Myalgic encephalomyelitis/chronic fatigue syndrome; U09.9 Post COVID-19 condition, unspecified; Z87.891 Personal history of nicotine dependence
CPT/HCPCS: 43239; 43450; 88305; J2704; J7120

== ENCOUNTER 2022-06-21 10:25 | Outpatient (CLI) | payer OTHER, SELFPAY ==
[2022-06-21 10:54] LABS: Basophils Absolute Auto 0.1 K/mm3 (0.0-0.1); Basophils Percent Auto 0.9 % (0.2-1.2); Eosinophils Absolute Auto 0.2 K/mm3 (0-0.3); Eosinophils Percent Auto 2.8 % (0-4.4); Hematocrit 40.2 % (42.0-52.0); Hemoglobin 12.4 g/dL (14.0-18.0); Immature Granulocyte Absolute 0.02 K/mm3 (0.00-0.031); Immature Granulocyte Percent A 0.4 % (0-0.5); Lymphocytes Absolute Auto 1.14 K/mm3 (0.9-3.2); Lymphocytes Percent Auto 21.4 % (18.3-44.2); Mean Corpuscular HGB Conc 30.8 g/dl (32-36); Mean Corpuscular Hemoglobin 24.2 pg (26-34); Mean Corpuscular Volume 78.5 fl (80-100); Mean Platelet Volume 9.1 fl (7.4-10.4); Monocytes Absolute Auto 0.5 K/mm3 (0.1-0.6); Monocytes Percent Auto 8.6 % (2.6-8.5); Neutrophils Absolute Auto 3.5 K/mm3 (1.3-6.7); Neutrophils Percent Auto 65.9 % (45.5-73.1); Platelet Count Result 348 k/mm3 (150-375); Red Blood Count 5.12 M/mm3 (4.6-6.20); Red Cell Distribution Width 15.7 % (11.5-14.5); White Blood Count 5.3 K/mm3 (4.5-10.0)
[2022-06-21 10:55] LABS: Appearance Urine Clear (Clear); Bilirubin Urine Negative (Negative); Blood Urine Negative (Negative); Color Urine Light Yellow (Yellow); Glucose Urine UA Negative (Negative); Ketones Urine Negative (Negative); Leukocyte Esterase Ur Negative LEU/UL (NEGATIVE); Nitrate Urine Negative (Negative); Protein Urine Negative (Negative); Specific Grav Ur 1.015 (1.001-1.035); Urobilinogen Urine 0.2 mg/dL (<2.0)
[2022-06-21 11:03] LABS: Chloride 103 mmol/L (98-107)
[2022-06-21 11:04] LABS: Add Urine Microscopic? NO
[2022-06-21 11:06] LABS: Alanine Aminotransferase 19 U/L (6-50); Alkaline Phosphatase 67 U/L (38-126); Anion Gap 5 mmol/L (8-16); Aspartate Amino Transferase 23 U/L (17-59); Bilirubin,Total 0.8 mg/dL (0.2-1.3); Blood Urea Nitrogen 7 mg/dL (9-20); Calcium 8.6 mg/dL (8.4-10.2); Carbon Dioxide 30 mmol/L (22-30); Cholesterol 171 mg/dL (0-200); Estimated Glomerular Filt Rate > 60; Glucose 91 mg/dL (65-110); HDL Direct 40 mg/dL; Potassium 4.1 mmol/L (3.4-5.0); Sodium 138 mmol/L (137-145); Triglycerides 60 mg/dL (<150)
[2022-06-21 11:15] LABS: LDL Cholesterol Direct 101 mg/dL
[2022-06-21 11:18] LABS: Iron 35 ug/dL (49-181)
[2022-06-21 11:27] LABS: Percent Iron Saturation 7 % (20-50)
[2022-06-21 11:34] LABS: Prostate Specific Antigen 0.4 ng/mL (< OR = 4.0); Thyroid Stimulating Hormone 0.729 uIU/mL (0.465-4.680)
[2022-06-21 12:09] LABS: Folic Acid 7.6 ng/mL (2.76->20)
== END 2022-06-21 10:26 | disposition home or self-care (01) ==
LOC: ANHLAB 10:28
PROVIDERS: PCP Family Medicine; Visit Provider Physician Assistant
DX: Z00.00 Encounter for general adult medical examination without abnormal findings (principal); D64.9 Anemia, unspecified; B94.8 Sequelae of other specified infectious and parasitic diseases; R53.83 Other fatigue; K21.9 Gastro-esophageal reflux disease without esophagitis; I10 Essential (primary) hypertension
CPT/HCPCS: 36415; 80053; 80061; 81003; 82607; 82728; 82746; 83540; 83550; 84153; 84443; 85025

== ENCOUNTER 2022-09-06 07:55 | Outpatient (CLI) | payer OTHER, SELFPAY ==
[2022-09-06 10:33] LABS: Basophils Absolute Auto 0.1 K/mm3 (0.0-0.1); Basophils Percent Auto 0.8 % (0.2-1.2); Eosinophils Absolute Auto 0.2 K/mm3 (0-0.3); Eosinophils Percent Auto 3.7 % (0-4.4); Hematocrit 34.8 % (42.0-52.0); Hemoglobin 10.5 g/dL (14.0-18.0); Immature Granulocyte Absolute 0.02 K/mm3 (0.00-0.031); Immature Granulocyte Percent A 0.3 % (0-0.5); Lymphocytes Percent Auto 19.4 % (18.3-44.2); Mean Corpuscular HGB Conc 30.2 g/dl (32-36); Mean Corpuscular Hemoglobin 23.2 pg (26-34); Mean Platelet Volume 9.9 fl (7.4-10.4); Monocytes Absolute Auto 0.6 K/mm3 (0.1-0.6); Neutrophils Absolute Auto 4.1 K/mm3 (1.3-6.7); Neutrophils Percent Auto 66.8 % (45.5-73.1); Platelet Count Result 357 k/mm3 (150-375); Red Blood Count 4.52 M/mm3 (4.6-6.20); Red Cell Distribution Width 17.1 % (11.5-14.5); White Blood Count 6.2 K/mm3 (4.5-10.0)
[2022-09-06 10:47] LABS: Iron < 10 ug/dL (49-181)
[2022-09-06 11:00] LABS: Percent Iron Saturation 2 % (20-50)
[2022-09-06 11:23] LABS: Ferritin 4.71 ng/mL (11.1-264)
== END 2022-09-06 07:56 | disposition home or self-care (01) ==
PROVIDERS: PCP Family Medicine; Visit Provider Physician Assistant
DX: D50.9 Iron deficiency anemia, unspecified (principal)
CPT/HCPCS: 36415; 82728; 83540; 83550; 85025

== ENCOUNTER 2022-10-15 16:03 | Outpatient (CLI) | payer OTHER, SELFPAY ==
[2022-10-15 16:20] LABS: Basophils Absolute Auto 0.1 K/mm3 (0.0-0.1); Basophils Percent Auto 0.7 % (0.2-1.2); Eosinophils Absolute Auto 0.3 K/mm3 (0-0.3); Eosinophils Percent Auto 4.2 % (0-4.4); Hematocrit 36.4 % (42.0-52.0); Hemoglobin 11.1 g/dL (14.0-18.0); Immature Granulocyte Absolute 0.01 K/mm3 (0.00-0.031); Immature Granulocyte Percent A 0.1 % (0-0.5); Lymphocytes Absolute Auto 2.03 K/mm3 (0.9-3.2); Lymphocytes Percent Auto 30.3 % (18.3-44.2); Mean Corpuscular HGB Conc 30.5 g/dl (32-36); Mean Corpuscular Hemoglobin 22.1 pg (26-34); Mean Corpuscular Volume 72.5 fl (80-100); Mean Platelet Volume 9.5 fl (7.4-10.4); Monocytes Absolute Auto 0.7 K/mm3 (0.1-0.6); Monocytes Percent Auto 9.9 % (2.6-8.5); Neutrophils Absolute Auto 3.7 K/mm3 (1.3-6.7); Neutrophils Percent Auto 54.8 % (45.5-73.1); Platelet Count Result 346 k/mm3 (150-375); Red Blood Count 5.02 M/mm3 (4.6-6.20); Red Cell Distribution Width 16.9 % (11.5-14.5); White Blood Count 6.7 K/mm3 (4.5-10.0)
[2022-10-15 20:06] LABS: Iron 48 ug/dL (49-181)
[2022-10-15 20:15] LABS: Percent Iron Saturation 10 % (20-50)
[2022-10-15 21:15] LABS: Alanine Aminotransferase 26 U/L (6-50); Albumin Level 4.4 g/dL (3.5-5.1); Alkaline Phosphatase 55 U/L (38-126); Anion Gap 8 mmol/L (8-16); Aspartate Amino Transferase 31 U/L (17-59); Bilirubin,Total 0.7 mg/dL (0.2-1.3); Blood Urea Nitrogen 15 mg/dL (9-20); Calcium 8.6 mg/dL (8.4-10.2); Carbon Dioxide 28 mmol/L (22-30); Chloride 102 mmol/L (98-107); Estimated Glomerular Filt Rate > 60; Glucose 77 mg/dL (65-110); Potassium 4.2 mmol/L (3.4-5.0); Sodium 138 mmol/L (137-145)
[2022-10-15 22:23] LABS: Folic Acid 8.3 ng/mL (2.76->20)
== END 2022-10-15 16:04 | disposition home or self-care (01) ==
LOC: ANHLAB 16:05
PROVIDERS: PCP Family Medicine; Visit Provider Internal Medicine Hematology & Oncology
DX: D64.9 Anemia, unspecified (principal)
CPT/HCPCS: 36415; 80053; 82607; 82728; 82746; 83540; 83550; 85025

== ENCOUNTER 2023-02-23 09:50 | Outpatient (CLI) | payer OTHER, SELFPAY ==
[2023-02-23 12:09] LABS: Alanine Aminotransferase 19 U/L (6-50); Albumin Level 4.2 g/dL (3.5-5.1); Alkaline Phosphatase 59 U/L (38-126); Anion Gap 6 mmol/L (8-16); Aspartate Amino Transferase 29 U/L (17-59); Bilirubin,Total 0.9 mg/dL (0.2-1.3); Blood Urea Nitrogen 7 mg/dL (9-20); Calcium 8.7 mg/dL (8.4-10.2); Carbon Dioxide 27 mmol/L (22-30); Chloride 103 mmol/L (98-107); Estimated Glomerular Filt Rate > 60; Glucose 83 mg/dL (65-110); Potassium 4.3 mmol/L (3.4-5.0); Sodium 136 mmol/L (137-145)
== END 2023-02-23 09:51 | disposition home or self-care (01) ==
LOC: ANHLAB 09:50
PROVIDERS: PCP Family Medicine; Visit Provider Physician Assistant
DX: K21.9 Gastro-esophageal reflux disease without esophagitis (principal); I10 Essential (primary) hypertension
CPT/HCPCS: 36415; 80053

== ENCOUNTER 2023-05-23 11:12 | Emergency (ER) | payer OTHER, SELFPAY ==
--- NOTE | 2023-05-23 11:18 | ED.EAR ---
HPI - Ear Problem General Chief complaint: Ear Stated complaint: bilateral ear pain Time Seen by Provider: 05/23/23 11:18 Source: patient Mode of arrival: ambulatory Limitations: no limitations History of Present Illness HPI Narrative: Donte is a 57-year-old male patient presenting to the clinic today with complaints of bilateral ear pain for over 1 week. Reports the left ear has been going on for approximately 1 week and the right ear longer. Denies any fever chills. States he is not having a whole lot of ear pain just congestion and decreased hearing. Patient is requesting a capsule medication instead of a tablet as he has difficulty swallowing the tablets. Related Data Allergies Allergy/AdvReac Type Severity Reaction Status Date / Time gluten Allergy Severe rash and Verified 05/23/23 11:36 GI issues Review of Systems Review of Systems: Pertinent positives per HPI. Patient denies any fever, chills, rash, headache, visual changes, dizziness, cough, runny nose, sore throat, shortness of breath, chest pain, palpitations, nausea, vomiting, diarrhea, constipation, abdominal pain, or any urinary issues. PMFSH Past Medical History Medical History Diverticulitis Essential hypertension GERD (gastroesophageal reflux disease) Post-COVID chronic fatigue Social History Social History Smoking packs per day: 0.5 Smoking cigarettes per day: 10.0 Years smoked: 15 Smoking pack-years: 7.50 Smoking status: Former smoker Tobacco type: cigarettes Second hand tobacco smoke exposure: No Smoking end date: 05/18/89 Alcohol intake: current Drinks per week: 6 Alcohol use details: BOURBON Substance use: never Substance use type: does not use Living arrangements: with family Occupation/Education: occupation Gender identity (if verbalized by the patient): Male Sexual Orientation (if Verbalized by the Patient): Straight or Heterosexual Spiritual care concerns: No Comments At the time of my signature, I reviewed and agree with the nursing past medical, surgical, social, and family history. There is no relevant family history pertinent to the patient complaint. Exam Narrative: General: Well-developed, well nourished, in no apparent distress Head: Normocephalic, atraumatic Eyes: Pupils equally round and reactive to light bilaterally, EOM intact, sclera and conjunctive clear, no discharge, lids normal Ears: TMs intact, bulging, red with yellow discharge noted behind the eardrum, ear canals clear, no drainage, grossly hearing normal. Nose: Nares patent, no discharge, no inflammation, no sinus tenderness. Mouth: Oropharynx without lesions or masses, good dentition, MMM. Neck: Supple, trachea midline, no enlargement of anterior or posterior cervical nodes, no thyroid masses or goiter palpable. Cardio: Regular rate and rhythm, s1 and s2 normal, no murmur appreciated. Resp: Clear to auscultation bilaterally anteriorly and posteriorly, no rhonchi, rales, wheezing or rubs Course Course Emergency Course: Portions of this record may have been created with voice recognition software. Level of Care: Express Care Visit Vital Signs Vital signs: Vital signs reviewed Medical Decision Making MDM Narrative Medical decision making narrative: At the time of visit patient is resting comfortably on the exam table. Patient appears to be nontoxic. I suspect patient has acute bilateral otitis media. Prescription for prednisone and cefdinir was sent to the pharmacy. Supportive measures were discussed with the patient and they voiced understanding discharge instructions and agrees to treatment plan. Return precautions reviewed Differential Diagnosis Differential Diagnosis: Otitis media, otitis externa, eustachian tube dysfunction, cerumen impaction, upper respiratory infections, serous
[2023-05-23 11:25] VITALS: BP 141/89; PULSE 79; RESP 18; TEMP 35.9; O2SAT 100
== END 2023-05-23 11:33 | disposition home or self-care (01) ==
PROVIDERS: Emergency Provider Nurse Practitioner Family; PCP Family Medicine
DX: H66.93 Otitis media, unspecified, bilateral (principal); Z87.891 Personal history of nicotine dependence; I10 Essential (primary) hypertension; K21.9 Gastro-esophageal reflux disease without esophagitis; Z86.16 Personal history of COVID-19
CPT/HCPCS: 99213; G0463

== ENCOUNTER 2023-11-07 08:44 | Outpatient (CLI) | payer OTHER, SELFPAY ==
[2023-11-07 09:49] LABS: Basophils Absolute Auto 0.1 K/mm3 (0.0-0.1); Basophils Percent Auto 0.8 % (0.2-1.2); Eosinophils Absolute Auto 0.2 K/mm3 (0-0.3); Eosinophils Percent Auto 2.6 % (0-4.4); Hematocrit 39.6 % (42.0-52.0); Hemoglobin 12.5 g/dL (14.0-18.0); Immature Granulocyte Absolute 0.02 K/mm3 (0.00-0.031); Immature Granulocyte Percent A 0.3 % (0-0.5); Lymphocytes Percent Auto 24.8 % (18.3-44.2); Mean Corpuscular HGB Conc 31.6 g/dl (32-36); Mean Corpuscular Hemoglobin 25.7 pg (26-34); Mean Corpuscular Volume 81.5 fl (80-100); Mean Platelet Volume 10.3 fl (7.4-10.4); Monocytes Absolute Auto 0.5 K/mm3 (0.1-0.6); Monocytes Percent Auto 8.3 % (2.6-8.5); Neutrophils Absolute Auto 3.8 K/mm3 (1.3-6.7); Neutrophils Percent Auto 63.2 % (45.5-73.1); Platelet Count Result 276 k/mm3 (150-375); Red Blood Count 4.86 M/mm3 (4.6-6.20); Red Cell Distribution Width 14.9 % (11.5-14.5)
[2023-11-07 09:52] LABS: Alanine Aminotransferase 21 U/L (6-50); Alkaline Phosphatase 56 U/L (38-126); Anion Gap 8 mmol/L (4-12); Aspartate Amino Transferase 22 U/L (17-59); Bilirubin,Total 0.7 mg/dL (0.2-1.3); Blood Urea Nitrogen 13 mg/dL (9-20); Calcium 8.2 mg/dL (8.4-10.2); Carbon Dioxide 24 mmol/L (22-30); Chloride 105 mmol/L (98-107); Cholesterol 138 mg/dL (0-200); Estimated Glomerular Filt Rate > 60; Glucose 91 mg/dL (65-110); HDL Direct 37 mg/dL; Sodium 137 mmol/L (137-145); Triglycerides 57 mg/dL (<150)
[2023-11-07 09:56] LABS: Iron 37 ug/dL (49-181)
[2023-11-07 10:07] LABS: LDL Cholesterol Direct 96 mg/dL
[2023-11-07 10:12] LABS: Percent Iron Saturation 9 % (20-50)
[2023-11-07 10:16] LABS: Appearance Urine Clear (Clear); Bilirubin Urine Negative (Negative); Blood Urine Negative (Negative); Color Urine Yellow (Yellow); Glucose Urine UA Negative (Negative); Ketones Urine Negative (Negative); Leukocyte Esterase Ur Negative LEU/UL (Negative); Nitrate Urine Negative (Negative); Protein Urine Negative (Negative); Specific Grav Ur 1.011 (1.001-1.035); Urobilinogen Urine 0.2 mg/dL (<2.0)
[2023-11-07 10:17] LABS: Add Urine Microscopic? NO
[2023-11-07 10:22] LABS: Prostate Specific Antigen 0.4 ng/mL (< OR = 4.0); Thyroid Stimulating Hormone 0.818 uIU/mL (0.465-4.680)
[2023-11-07 10:40] LABS: Ferritin 6.37 ng/mL (11.1-264)
== END 2023-11-07 08:45 | disposition home or self-care (01) ==
LOC: ANHLAB 08:45
PROVIDERS: PCP Family Medicine; Visit Provider Physician Assistant
DX: Z00.00 Encounter for general adult medical examination without abnormal findings (principal); I10 Essential (primary) hypertension; D50.9 Iron deficiency anemia, unspecified; K21.9 Gastro-esophageal reflux disease without esophagitis; Z12.5 Encounter for screening for malignant neoplasm of prostate
CPT/HCPCS: 36415; 80053; 80061; 81003; 82728; 83540; 83550; 84153; 84443; 85025; G0103

== ENCOUNTER 2024-06-18 10:18 | Outpatient (CLI) | payer OTHER, SELFPAY ==
--- OUTSIDE RECORDS SUMMARY | 2024-06-18 10:22 | XMS_ITS | Clinical Summary ---
Author Organization [facility] Address [facility] [facility] [place] [address] [place] [address] Care Team Providers Care Equipment Cleaner Name Role Phone Unavailable Primary Care Provider Unavailabl e Social History Tobacco Use Types Packs/Day Years Used Date Smoking Tobacco: Never Assessed Sex and Gender Information Value Date Recorded Sex Assigned at Not on file Legal Sex Male 7:09 PM CDT Gender Identity Not on file Sexual Orientation Not on file Last Filed Vital Signs Vital Sign Reading Time Taken Comments Blood Pressure 118/72 05/31/2013 5:30 PM FORTUNE COOKIE MAKER Pulse 85 05/31/2013 5:30 PM FORTUNE COOKIE MAKER Temperature - - Respiratory Rate - - Oxygen Saturation - - Inhaled Oxygen Concentration - - Weight 90.7 kg (200 lb) 05/31/2013 5:30 PM FORTUNE COOKIE MAKER Height 175.3 cm (5' 9 ) 05/31/2013 5:30 PM FORTUNE COOKIE MAKER Body Mass Index 29.53 05/31/2013 5:30 PM FORTUNE COOKIE MAKER Plan of Treatment Health Maintenance Due Date Last Done Comments Colorectal Cancer Screening Colonoscopy (10 Years) 1963 Annual Physical 10/25/1966 Hepatitis C 10/25/1981 DTaP, Tdap and Td Vaccines ( 1 - Tdap) 10/25/1982 Zoster Vaccines (1 of 2) 10/25/2013 COVID-19 Vaccine ( - 2023-2 5 season) 2024 Influenza Adult (#1) 2024 RSV Immunization or 60+ Years (1 - 1-dose 75+ series) 10/25/2038 Meningococcal B Vaccine Aged Out No l onger eligible based on patient's age to complete this topic Meningococcal Vaccine Aged Out No shelley jimmy eligible based on patient's age to complete this topic Pneumococcal Vaccine: Pediat rics (0 to 5 Years) and At-Risk Patients (6 to 64 Years) Aged Out No longer eligible b ased on patient's age to complete this topic RSV Immunizations Under 20 Months Aged Out No longer eligible based on patient's age to complete this topic
--- OUTSIDE RECORDS SUMMARY | 2024-06-18 10:22 | XMS_ITS | Clinical Summary ---
Author Organization [facility] Address [address] [place] [address] Care Team Providers Care Branch Lead Name Role Phone Nikolay Dinh MD Primary Care Provider [phone] Allergies No known active allergies Medications pantoprazole (PROTONIX) 40 mg Tablet, Delayed Release (E.C.) Take 40 mg by mouth 2 times daily. 09/26/2022 Active Active Problems No known active problems Family History Medical History Relation Name Comments Melanoma Daughter 1 Heart Disease Mother Uterine Cancer Mother Relation Name Status Comments Brother Alive Daughter 1 Alive Daughter 2 Alive Father Mother Sister Alive Social History Tobacco Use Types Packs/Day Years Used Date Smoking Tobacco: Former Cigarettes Alcohol Use Standard Drinks/Week Comments Yes 0 (1 standard drink = 0.6 oz pur e alcohol) occasional Sex and Gender Information Value Date Recorded Sex Assigned at Not on file Legal Sex Male 1:54 PM CDT Gender Identity Not on file Sexual Orientation Not on file Last Filed Vital Signs Vital Sign Reading Time Taken Comments Blood Pressure 125/85 10/15/2022 3:37 PM CDT Pulse 80 10/15/2022 3:37 PM CDT Temperature 36.2 ??C (97.1 ??F) 10/15/2022 3:37 PM CD T Respiratory Rate 10 10/15/2022 3:37 PM CDT Oxygen Saturation 100% 10/15/2022 3:37 PM CDT Inhaled Oxygen Concentration - - Weight 91.4 kg (201 lb 9.6 oz) 10/15/2022 3:37 P M CDT Height 177.8 cm (5' 10 ) 10/15/2022 3:37 PM CDT Body Mass Index 28.93 10/15/2022 3:37 PM CDT Plan of Treatment Health Maintenance Due Date Last Done Comments DTAP/TDAP/TD VACCINES (1 - Tdap) 10/25/1982 COLORECTAL SCREENING 10/25/2008 Colorectal Cancer Screening 10/25/2008 FIT-DNA Q 3 years 10/25/2008 FIT/FOBT Q 1 year 10/25/2008 Flex Sig/CT Colonography Q 5 years 10/25/2008 ZOSTER VACCINE (1 of 2) 10/25/2013 INFLUENZA VACCINE (#1) 2023 RSV VACCINE (60+ or ) (1 - 1-dose 75+ series) 10/25/2038 HEPATITIS B VACCINES Aged Out No long er eligible based on patient's age to complete this topic PNEUMOCOCCAL VACCINE 0-64 YEARS Aged Out No longer eligible based on patient's age to complete this topic Insurance [employer] CHOICE POS II Care Teams Branch Lead Relationship Specialty Start Date End Date Nikolay Dinh MD [address] [facility] [address] [place] [address] PCP - General Family Practice 10/15/22
--- OUTSIDE RECORDS SUMMARY | 2024-06-18 10:22 | XMS_ITS | Referral Summary ---
Author Organization [facility] [address] Address [address] [place] [address] Care Team Providers Care Auto Body Worker Name Role Phone Nikolay Dinh MD Primary Care Provider Social History Tobacco Use Types Packs/Day Years Used Date Smoking Tobacco: Never Assessed Personal Safety Answer Date Recorded Getting School Help Needed Not on file 08/01 Sex and Gender Information Value Date Recorded Sex Assigned at Not on file Legal Sex Male 10:59 AM CDT Gender Identity Not on file Sexual Orientation Not on file Plan of Treatment Not on file Insurance [facility] HMO Care Teams Auto Body Worker Relationship Specialty Start Date End Date Nikolay Dinh MD [address] [facility] [address] [place] [address] PCP - General Family Medicine 01/28/22
--- OUTSIDE RECORDS SUMMARY | 2024-06-18 10:22 | XMS_ITS | Clinical Summary ---
Author Organization [facility] [address] Address [address] [place] [address] Care Team Providers Care Hand Tube Winder Name Role Phone Nikolay Dinh MD Primary [...] Plan of Treatment Not on file Insurance [facility] HMO Care Teams Hand Tube Winder Relationship Specialty Start Date End Date Nikoaly Dinh MD [address] [facility] [address] [place] [address] PCP - General Family Medicine 01/28/22
[2024-06-18 10:47] LABS: Basophils Percent Auto 0.7 % (0.2-1.2); Eosinophils Absolute Auto 0.3 K/mm3 (0-0.3); Eosinophils Percent Auto 6.1 % (0-4.4); Hematocrit 38.1 % (42.0-52.0); Hemoglobin 11.7 g/dL (14.0-18.0); Immature Granulocyte Absolute 0.02 K/mm3 (0.00-0.031); Immature Granulocyte Percent A 0.4 % (0-0.5); Lymphocytes Absolute Auto 1.49 K/mm3 (0.9-3.2); Lymphocytes Percent Auto 26.8 % (18.3-44.2); Mean Corpuscular HGB Conc 30.7 g/dl (32-36); Mean Corpuscular Hemoglobin 22.6 pg (26-34); Mean Corpuscular Volume 73.7 fl (80-100); Mean Platelet Volume 9.2 fl (7.4-10.4); Monocytes Absolute Auto 0.6 K/mm3 (0.1-0.6); Monocytes Percent Auto 10.5 % (2.6-8.5); Neutrophils Absolute Auto 3.1 K/mm3 (1.3-6.7); Neutrophils Percent Auto 55.5 % (45.5-73.1); Platelet Count Result 330 k/mm3 (150-375); Red Blood Count 5.17 M/mm3 (4.6-6.20); Red Cell Distribution Width 19.1 % (11.5-14.5); White Blood Count 5.6 K/mm3 (4.5-10.0)
[2024-06-18 11:00] LABS: Alanine Aminotransferase 21 U/L (6-50); Albumin Level 3.9 g/dL (3.5-5.1); Alkaline Phosphatase 69 U/L (38-126); Anion Gap 7 mmol/L (4-12); Aspartate Amino Transferase 24 U/L (17-59); Bilirubin,Total 0.8 mg/dL (0.2-1.3); Blood Urea Nitrogen 12 mg/dL (9-20); Calcium 8.7 mg/dL (8.4-10.2); Carbon Dioxide 26 mmol/L (22-30); Chloride 103 mmol/L (98-107); Estimated Glomerular Filt Rate > 60; Glucose 83 mg/dL (65-110); Potassium 4.8 mmol/L (3.4-5.0); Sodium 136 mmol/L (137-145)
[2024-06-18 11:09] LABS: Iron 36 ug/dL (49-181)
[2024-06-18 11:12] LABS: Burr Cells 1+; Microcytosis 1+ (NORMAL); Ovalocytes 1+; Platelet Estimate Adequate (Adequate); Schistocytes None Seen
[2024-06-18 11:19] LABS: Percent Iron Saturation 8 % (20-50)
[2024-06-18 11:45] LABS: Ferritin 5.63 ng/mL (11.1-264)
== END 2024-06-18 10:19 | disposition home or self-care (01) ==
PROVIDERS: PCP Family Medicine; Visit Provider Physician Assistant
DX: D50.9 Iron deficiency anemia, unspecified (principal); K21.9 Gastro-esophageal reflux disease without esophagitis; I10 Essential (primary) hypertension
CPT/HCPCS: 36415; 80053; 82728; 83540; 83550; 85025

== ENCOUNTER 2024-12-10 09:13 | Outpatient (CLI) | payer OTHER, SELFPAY ==
--- OUTSIDE RECORDS SUMMARY | 2024-12-10 09:16 | XMS_ITS | Clinical Summary ---
Author Organization [facility] Address [address] [place] [address] Care Team Providers Care Job Placement Officer Name Role Phone Nikolay Dinh MD Primary Care Provider [phone] Allergies No known active allergies Medications pantoprazole [...] 80 10/15/2022 3:37 PM CDT Temperature 36.2 C (97.1 F) 10/15/2022 3:37 PM CDT Respiratory Rate 10 10/15/2022 3:37 PM CDT Oxygen Saturation 100% 10/15/2022 3:37 PM CDT Inhaled Oxygen Concentration - - Weight 91.4 kg (201 lb 9.6 oz) 10/15/2022 3:37 P M CDT Height 177.8 cm (5' 10) 10/15/2022 3:37 PM CDT Body Mass Index 28.93 10/15/2022 3:37 PM CDT Plan of Treatment Health Maintenance Due Date Last Done Comments DTAP/TDAP/TD VACCINES (1 - Tdap) 10/25/1982 COLORECTAL SCREENING 10/25/2008 Colorectal Cancer Screening 10/25/2008 FIT-DNA Q 3 years 10/25/2008 FIT/FOBT Q 1 year 10/25/2008 Flex Sig/CT Colonography Q 5 years 10/25/2008 ZOSTER VACCINE (1 of 2) 10/25/2013 INFLUENZA VACCINE (#1) 2024 RSV VACCINE (60+ or ) (1 - 1-dose 75+ series) 10/25/2038 Insurance [employer] CHOICE POS II Care Teams Job Placement Officer Relationship Specialty Start Date End Date Nikolay Dinh MD [address] [facility] [address] [place] [address] PCP - General Family Practice 10/15/22
--- OUTSIDE RECORDS SUMMARY | 2024-12-10 09:16 | XMS_ITS | Clinical Summary ---
Author Organization [facility] Address [facility] [place] [address] Care Team Providers Care Marketing Editor Name Role Phone Unavailable Primary Care Provider [...] Comments Blood Pressure 118/72 05/31/2013 5:30 PM EQUIPMENT INSPECTOR Pulse 85 05/31/2013 5:30 PM EQUIPMENT INSPECTOR Temperature - - Respiratory Rate - - Oxygen Saturation - - Inhaled Oxygen Concentration - - Weight 90.7 kg (200 lb) 05/31/2013 5:30 PM EQUIPMENT INSPECTOR Height 175.3 cm (5' 9) 05/31/2013 5:30 PM EQUIPMENT INSPECTOR Body Mass Index 29.53 05/31/2013 5:30 PM EQUIPMENT INSPECTOR Plan of Treatment Health Maintenance Due Date Last Done Comments Colorectal Cancer Screening Colonoscopy (10 Years) 1963 Annual Physical 10/25/1966 Hepatitis C 10/25/1981 DTaP, Tdap and Td Vaccines ( 1 - Tdap) 10/25/1982 Pneumococcal Vaccine: 50+ Ye ars (1 of 1 - PCV) 10/25/2013 Zoster Vaccines (1 of 2) 10/25/2013 COVID-19 Vaccine (1 - 2023-2 5 season) 2024 RSV Immunization or 60+ Years (1 [...]
--- OUTSIDE RECORDS SUMMARY | 2024-12-10 09:16 | XMS_ITS | Referral Summary ---
Author Organization [facility] [address] Address [address] [place] [address] Care Team Providers Care Waxer Name Role Phone Nikolay Dinh MD Primary [...] Plan of Treatment Not on file Insurance [facility] HMO Care Teams Waxer Relationship Specialty Start Date End Date Nikolay Dinh MD [address] [facility] [address] [place] [address] PCP - General Family Medicine 01/28/22
--- OUTSIDE RECORDS SUMMARY | 2024-12-10 09:16 | XMS_ITS | Clinical Summary ---
Author Organization [facility] [address] Address [address] [place] [address] Care Team Providers Care Echometer Engineer Name Role Phone Nikolay Dinh MD Primary [...] Plan of Treatment Not on file Insurance [facility] HMO Care Teams Echometer Engineer Relationship Specialty Start Date End Date Nikolay Dinh MD [address] [facility] [address] [place] [address] PCP - General Family Medicine 01/28/22
[2024-12-10 10:26] LABS: Hematocrit 37.0 % (42.0-52.0); Hemoglobin 11.3 g/dL (14.0-18.0); Immature Granulocyte Percent A 0.3 % (0-0.5); Lymphocytes Absolute Auto 1.74 K/mm3 (0.9-3.2); Mean Corpuscular HGB Conc 30.5 g/dl (32-36); Mean Corpuscular Hemoglobin 22.4 pg (26-34); Mean Corpuscular Volume 73.4 fl (80-100); Nucleated Red Blood Cells Absolute Auto 0.000 K/mm3 (0.0-0.012); Nucleated Red Blood Cells Perc 0.0 % (0.0-0.2); Platelet Count Result 283 k/mm3 (150-375); Red Blood Count 5.04 M/mm3 (4.6-6.20); White Blood Count 6.6 K/mm3 (4.5-10.0)
[2024-12-10 10:31] LABS: Add Urine Microscopic? YES; Appearance Urine Cloudy (Clear); Glucose Urine UA Negative (Negative); Leukocyte Esterase Ur Negative LEU/UL (Negative); Nitrate Urine Negative (Negative); Non Pathogenic Casts 0-2; Specific Grav Ur 1.004 (1.001-1.035)
[2024-12-10 10:47] LABS: Alanine Aminotransferase 25 U/L (6-50); Albumin Level 3.9 g/dL (3.5-5.1); Alkaline Phosphatase 51 U/L (38-126); Anion Gap 6 mmol/L (4-12); Aspartate Amino Transferase 30 U/L (17-59); Bilirubin,Total 1.0 mg/dL (0.2-1.3); Blood Urea Nitrogen 12 mg/dL (9-20); Calcium 8.5 mg/dL (8.4-10.2); Carbon Dioxide 24 mmol/L (22-30); Chloride 102 mmol/L (98-107); Cholesterol 167 mg/dL (0-200); Estimated Glomerular Filt Rate > 60; Glucose 87 mg/dL (65-110); HDL Direct 31 mg/dL; Potassium 4.0 mmol/L (3.4-5.0); Sodium 132 mmol/L (137-145); Total Protein 7.0 g/dL (6.3-8.2); Triglycerides 114 mg/dL (<150)
[2024-12-10 10:48] LABS: Iron 48 ug/dL (49-181)
[2024-12-10 10:58] LABS: Percent Iron Saturation 10 % (20-50)
[2024-12-10 11:22] LABS: Prostate Specific Antigen 0.4 ng/mL (< OR = 4.0); Thyroid Stimulating Hormone 0.829 uIU/mL (0.465-4.680)
[2024-12-10 11:29] LABS: Ferritin 6.20 ng/mL (11.1-264)
[2024-12-10 11:58] LABS: Anisocytosis 2+; Microcytosis 1+ (NORMAL); Ovalocytes 1+
[2024-12-10 11:59] LABS: Schistocytes None Seen
== END 2024-12-10 09:14 | disposition home or self-care (01) ==
LOC: ANHLAB 09:14
PROVIDERS: PCP Family Medicine; Visit Provider Physician Assistant
DX: K21.9 Gastro-esophageal reflux disease without esophagitis (principal); I10 Essential (primary) hypertension; D50.9 Iron deficiency anemia, unspecified; E83.51 Hypocalcemia; Z00.00 Encounter for general adult medical examination without abnormal findings; Z12.5 Encounter for screening for malignant neoplasm of prostate; R35.1 Nocturia
CPT/HCPCS: 36415; 80053; 80061; 81001; 82728; 83540; 83550; 84153; 84443; 85025; G0103

== ENCOUNTER 2025-01-31 14:38 | Emergency (ER) | payer OTHER, SELFPAY ==
[2025-01-31 14:48] VITALS: BP 147/97; PULSE 92; RESP 16; TEMP 36.6; O2SAT 100
--- NOTE | 2025-01-31 14:53 | ECG_ITS ---
Test Date: 2025-01-31 14:56:17 Measurements Intervals [place]onder Rate: 76 P: 34 MA: 133 QRS: 23 QRSD: 88 T: 20 QT: 347 QTc: 392 Interpretive Statements SINUS RHYTHM NONSPECIFIC T-WAVE ABNORMALITY ABNORMAL ECG No previous ECG available for comparison Electronically Signed On 01-31-2025 17:19:33 CDT by Jose Miguel Connors M.D.
--- NOTE | 2025-01-31 15:42 | ED.GENADULT ---
HPI - General Adult General Chief complaint: Unspecified Stated complaint: Back Pain Time Seen by Provider: 01/31/25 14:50 Source: patient, family and RN notes reviewed Mode of arrival: ambulatory Limitations: no limitations History of Present Illness HPI narrative: 59-year-old male presents Express Care complaining of nausea, lightheadedness, heartburn since yesterday. Patient said he vomited this morning. But is not vomited since. Patient says his symptoms are worse in the morning and then get better throughout the day. Patient reports the heartburn feels like he needs to belch and adamantly denied having any chest pain, chest pressure, or epigastric pain. Patient denies any difficulty breathing, dizziness, vision changes, headache, fevers, body aches, chills, upper respiratory symptoms, cough, diarrhea, black tarry stools, or any other symptoms. Patient says he has a history of acid reflux and takes pantoprazole daily. Patient denies any significant past medical history, patient denies any cardiac history. Patient does report having chronic low back pain problems but states that is low back pain feels better today than usual but was wondering if his symptoms were coming from his back. Patient has been taking meloxicam and using lidocaine patches to his back. Related Data Allergies Allergy/AdvReac Type Severity Reaction Status Date / Time gluten Allergy Severe rash and Verified 01/31/25 14:54 GI issues Review of Systems Review of Systems: CONSTITUTIONAL: Denies fever, chills, or sweats. EYES: Denies visual changes, redness, or discharge. ENT: Denies rhinorrhea, congestion, sore throat, or otalgia. CARDIOVASCULAR: Denies chest pain, chest pressure, chest pain with exertion, orthopnea, palpitations, dizziness, or edema. Positive for lightheadedness. RESPIRATORY: Denies cough, wheezing, difficulty breathing or dyspnea. GASTROINTESTINAL: Denies abdominal pain, vomiting, or diarrhea. Positive for nausea. GENITOURINARY: Denies dysuria or hematuria. SKIN: Denies rash or itching. MUSCULOSKELETAL: Denies back pain, joint pain, or myalgia. NEUROLOGIC: Denies headache, numbness, or weakness. PSYCHIATRIC: Denies anxiety or depression. All other systems reviewed are negative, except as documented in HPI. [facility] Past Medical History Medical History Esophageal web Post-COVID chronic fatigue Diverticulitis Essential hypertension GERD (gastroesophageal reflux disease) Social History Social History Smoking packs per day: 0 Smoking cigarettes per day: 0.0 Years smoked: 15 Smoking pack-years: 0.00 Smoking status: Former smoker Tobacco type: cigarettes Second hand tobacco smoke exposure: No Smoking end date: 05/18/89 Alcohol intake: current Drinks per week: 6 Alcohol use details: BOURBON Substance use: never Substance use type: does not use Living arrangements: with family Occupation/Education: occupation Gender identity (if verbalized by the patient): Male Sexual Orientation (if Verbalized by the Patient): Straight or Heterosexual Spiritual care concerns: No Comments At the time of my signature, I reviewed and agree with the nursing past medical, surgical, social, and family history. There is no relevant family history pertinent to the patient complaint. Exam Narrative: GENERAL: This is a well-nourished, well-developed adult, in no apparent distress. They are non ill-appearing, nontoxic appearing. HEAD: normocephalic, atraumatic. EYES: Sclera clear/white. Conjunctiva normal. Vision is grossly intact. Extraocular movements intact EARS: External ears normal, auditory canals clear and without drainage, TMs normal without perforation. Hearing grossly intact. NOSE: External nose normal with no obvious nasal discharge, nasal turbinates without redness, no rhinorrhea. THROAT: Mucous membranes moist, posterior pharynx clear, without erythema or swelling. Uvula midline. NECK: Neck supple, non-tender without lymphadenopathy, masses or thyromegaly. CARDIOVASCULAR: Regular rate and rhythm without murmurs, gallops, or rubs. Peripheral pulses strong and palpable. RESPIRATORY: Clear to auscultation. Breath sounds equal bilaterally. No wheezes, rales, or rhonchi. Respiratory rate normal, respiratory effort nonlabored, no respiratory distress GASTROINTESTINAL: Abdomen soft, non-tender, nondistended. Bowel sounds are active. No hepato-splenomegaly, or palpable masses. No guarding or rigidity. No rebound tenderness. SKIN: warm, Dry, intact with no suspicious lesions or rash, good texture and turgor. NEURO: awake, alert, and oriented to person, place and time. There were no obvious focal neurologic abnormalities. EXTREMITIES: No joint tenderness, effusion, or edema noted. BACK: Nontender without deformity. No CVA tenderness. Course Course Emergency Course: Portions of this record may have been created with voice recognition software Level of Care: Express Care Visit Vital Signs Vital signs: Vital Signs Temperature 98 F 01/31/25 14:48 Pulse Rate 92 01/31/25 14:48 Respiratory Rate 16 01/31/25 14:48 Blood Pressure 147/97 H 01/31/25 14:48 Pulse Oximetry 100 01/31/25 14:48 Temperature 98 F 01/31/25 14:48 Pulse Rate 92 01/31/25 14:48 Respiratory Rate 16 01/31/25 14:48 Blood Pressure 147/97 H 01/31/25 14:48 Pulse Oximetry 100 01/31/25 14:48 Reviewed Medical Decision Making MDM Narrative Medical decision making narrative: Patient's symptoms vague and presentation. Patient does not elaborate on his symptoms. No peritoneal findings on exam, no abdominal tenderness. No signs of infection on exam. Patient nontoxic appearing, no apparent distress. Patient's vital signs hemodynamically stable. Patient only denies any chest pain, chest pressure, chest pain with exertion, difficulty breathing, jaw pain, left arm pain, or any other symptoms. Patient says it is not currently feel very nauseous and says is lightheadedness have improved. EKG is a sinus rhythm without any ischemic findings. Explained the patient that [facility] has limited resources and his symptoms likely require high level care would require lab work and further assessment and management. Recommended patient go to the ER for higher level care and he declined it is not want to go to the ER. Patient says he can not have a close follow-up with his PCP within the week. Through shared decision making patient states he will call his PCP in range follow-up. Patient agreed you to the ER tomorrow if his symptoms return or get significantly worse. Strict ER precautions also discussed with patient specific develops chest pains, chest pressures, worsening nausea vomiting, breathing problems, jaw pain, left arm pain, profusely sweating, abdominal pain, black tarry stools, or any serious concerns. Discussed physical exam findings. Advised supportive measures and signs/symptoms to go to the ER. Pt is appropriate for outpt treatment and f/u. Differential Diagnosis Differential Diagnosis: Dehydration, gastroenteritis, viral illness, ACS, arrhythmia, Vital Signs Vital Signs: Vital Signs Temperature 98 F 01/31/25 14:48 Pulse Rate 92 01/31/25 14:48 Respiratory Rate 16 01/31/25 14:48 Blood Pressure 147/97 H 01/31/25 14:48 Pulse Oximetry 100 01/31/25 14:48 Temperature 98 F 01/31/25 14:48 Pulse Rate 92 01/31/25 14:48 Respiratory Rate 16 01/31/25 14:48 Blood Pressure 147/97 H 01/31/25 14:48 Pulse Oximetry 100 01/31/25 14:48 ECG Data EKG #1: ECG completion date: 01/31/25 ECG completion time: 14:56 Prior ECG tracings: not available for review EKG Interpretation: normal rate, sinus rhythm, no ectopy, no ST changes, normal QRS, normal QT and NL axis Critical Care Time Critical Care Time Critical Care Time: No Discharge Plan Discharge Clinical Impression: Nausea, Lightheadedness Patient Disposition: Home Condition: Stable Instructions: Lightheadedness (ED) Additional Instructions: Your EKG is normal sinus rhythm today. Please follow-up with your PCP in 2-3 days for further evaluation. Please go to the ER if your symptoms return developed severe lightheadedness, dizziness, nausea, vomiting, chest pains, breathing problems, jaw pain, left arm pain, fevers, or any serious concerns. Patient Language: Bahraini Prescriptions: No Action meloxicam 7.5 mg tablet 7.5 mg PO DAILY PRN (Reason: arthritis) Qty: 30 2RF pantoprazole 40 mg tablet,delayed release (DR/EC) 40 mg PO QAM 30 Days Qty: 30 11RF Follow-up/Referrals: Nikolay Dinh MD [Primary Care Provider, Family Practice] Stand Alone Forms: Work/School Release IP Time of Disposition: 15:13
== END 2025-01-31 15:19 | disposition home or self-care (01) ==
PROVIDERS: PCP Family Medicine
DX: R11.0 Nausea (principal); R42 Dizziness and giddiness; Z87.891 Personal history of nicotine dependence; I10 Essential (primary) hypertension; K21.9 Gastro-esophageal reflux disease without esophagitis; Z86.16 Personal history of COVID-19
CPT/HCPCS: 93005; 99213; G0463

== ENCOUNTER 2025-02-12 15:23 | Emergency (ER) | payer OTHER, SELFPAY ==
[2025-02-12] VITALS (31 sets, daily range): BP systolic 125–161; BP diastolic 6–110; PULSE 61–107; RESP 12–24; TEMP 36.8; O2SAT 95–100
--- NOTE | ~2025-02-12 | XR_ITS ---
EXAMINATION: XR chest 2V, 02/12/2025 16:30 CDT HISTORY: SOB COMPARISON: No comparisons available. Technique: 2 views obtained. Findings: The lungs are clear, no effusion. No pneumothorax. Heart is normal size. Mediastinal and hilar contours are within normal limits. Bony thorax no acute abnormality. Impression: No acute cardiopulmonary abnormality. Reviewed, dictated and finalized at location P. Impression: No acute cardiopulmonary abnormality.
--- NOTE | 2025-02-12 15:32 | ECG_ITS ---
Test Date: 2025-02-12 15:36:40 Measurements Intervals [place] Rate: 79 P: 31 DE: 139 QRS: 6 QRSD: 92 T: -3 QT: 353 QTc: 405 Interpretive Statements SINUS RHYTHM Electronically Signed On 02-12-2025 20:51:15 CDT by Alok Ruano D.O
[2025-02-12 15:45] LABS: Hematocrit 37.8 % (42.0-52.0); Hemoglobin 11.9 g/dL (14.0-18.0); Immature Granulocyte Percent A 0.4 % (0-0.5); Lymphocytes Absolute Auto 1.80 K/mm3 (0.9-3.2); Mean Corpuscular HGB Conc 31.5 g/dl (32-36); Mean Corpuscular Hemoglobin 23.8 pg (26-34); Mean Corpuscular Volume 75.4 fl (80-100); Nucleated Red Blood Cells Absolute Auto 0.000 K/mm3 (0.0-0.012); Nucleated Red Blood Cells Perc 0.0 % (0.0-0.2); Platelet Count Result 309 k/mm3 (150-375); Red Blood Count 5.01 M/mm3 (4.6-6.20); White Blood Count 8.2 K/mm3 (4.5-10.0)
[2025-02-12 15:56] LABS: Alanine Aminotransferase 18 U/L (6-50); Albumin Level 4.2 g/dL (3.5-5.1); Alkaline Phosphatase 57 U/L (38-126); Anion Gap 8 mmol/L (4-12); Aspartate Amino Transferase 24 U/L (17-59); Bilirubin,Total 0.8 mg/dL (0.2-1.3); Blood Urea Nitrogen 8 mg/dL (9-20); Calcium 9.0 mg/dL (8.4-10.2); Carbon Dioxide 25 mmol/L (22-30); Chloride 105 mmol/L (98-107); Estimated CRCL calculation 73 ml/min; Estimated Glomerular Filt Rate > 60; Glucose 123 mg/dL (65-110); Potassium 4.1 mmol/L (3.4-5.0); Sodium 138 mmol/L (137-145); Total Protein 7.2 g/dL (6.3-8.2)
--- NOTE | 2025-02-12 16:24 | ED_ITS ---
HPI - SOB/Dyspnea General Chief Complaint: Shortness of Breath/Dyspnea Stated Complaint: dizzy, out of breath Time Seen by Provider: 02/12/25 15:32 Source: patient and family Mode of arrival: ambulatory Limitations: no limitations History of Present Illness HPI Narrative: 59-year-old male that presents to the ED for lightheadedness and chest discomfort. Patient states that 5 days ago, he had onset of a chest discomfort described as a ?gassy feeling?. He states that he was seen at urgent care for this and was advised to come to the ED but the pain went away so he went home. States that today, he had a similar but more severe feeling today. The pain is to the lower sternum. Has had some diaphoresis. He does history GERD with a lower esophageal sphincter stenosis that has been dilated previously. No prior cardiac history but has had a stress test few years ago that was ?borderline?. Denies shortness of breath. Related Data Allergies Allergy/AdvReac Type Severity Reaction Status Date / Time gluten Allergy Severe rash and Verified 02/12/25 15:38 GI issues Review of Systems 2 Review of Systems: Gen.: Denies fevers or chills Eyes: Denies eye pain or visual change ENT: Denies congestion Respiratory: Denies shortness of breath or cough CV: As per HPI GI: As per HPI denies burning, urgency, frequency or hematuria Musculoskeletal: Denies back pain or muscle pain Neuro: Denies numbness, tingling, weakness or focal weakness Skin: Denies rash Except as documented, all other systems reviewed and negative [facility] Past Medical History Medical History Esophageal web Post-COVID chronic fatigue Diverticulitis Essential hypertension GERD (gastroesophageal reflux disease) Social History Social History Smoking packs per day: 0 Smoking cigarettes per day: 0.0 Years smoked: 15 Smoking pack-years: 0.00 Smoking status: Former smoker Tobacco type: cigarettes Second hand tobacco smoke exposure: No Smoking end date: 05/18/89 Alcohol intake: current Drinks per week: 6 Alcohol use details: [place] Substance use: never Substance use type: does not use Living arrangements: with family Occupation/Education: occupation Gender identity (if verbalized by the patient): Male Sexual Orientation (if Verbalized by the Patient): Straight or Heterosexual Spiritual care concerns: No Course Vital Signs Vital signs: Vital Signs Pulse Rate 79 02/12/25 15:31 Respiratory Rate 16 02/12/25 15:31 Pulse Oximetry 99 02/12/25 15:31 Pulse Rate 66 02/12/25 18:46 Respiratory Rate 17 02/12/25 18:46 Blood Pressure 133/89 02/12/25 18:46 Pulse Oximetry 98 02/12/25 18:46 Oxygen Delivery Room Air 02/12/25 15:37 MDM - SOB/Dyspnea MDM Narrative Medical decision making narrative: 59-year-old male presenting for chest discomfort and lightheadedness. On initial evaluation, patient was in no acute distress, afebrile, hemodynamically stable rate. Heart and lungs clear. Abdomen soft nontender. CBC and CMP were without significant abnormalities. Initial troponin negative. Repeat troponin negative. Chest x-ray showed no acute process. Patient was able to ambulate through the department without any lightheadedness or chest pain. Heart score 2. Patient was deemed appropriate for discharge at this time. He was followed his PCP in next 2 days for re-evaluation. Patient was agreeable to this plan. Given strict return precautions. Differential Diagnosis Differential diagnosis: Likely other (ACS, costochondritis, GERD, hiatal hernia) Medical Records Attestation: I reviewed the patient's medical records. Lab Data Attestation: I reviewed the patient's lab results. 02/12/25 15:38 02/12/25 15:38 Labs: Lab Results 02/12/25 02/12/25 02/12/25 Range/Units 15:38 16:07 19:22 WBC 8.2 (4.5-10.0) K/mm3 RBC 5.01 (4.6-6.20) M/mm3 Hgb 11.9 L (14.0-18.0) g/dL Hct 37.8 L (42.0-52.0) % MCV 75.4 L (80-100) fl MCH 23.8 L (26-34) pg MCHC 31.5 L (32-36) g/dl RDW 17.4 H (11.5-14.5) % Plt Count 309 (150-375) k/mm3 MPV 9.2 (7.4-10.4) fl Immature Gran % (Auto) 0.4 (0-0.5) % Neut % (Auto) 69.7 (45.5-73.1) % Lymph % (Auto) 21.9 (18.3-44.2) % [place] % (Auto) 6.1 (2.6-8.5) % Eos % (Auto) 1.3 (0-4.4) % Baso % (Auto) 0.6 (0.2-1.2) % Lymph # (Auto) 1.80 (0.9-3.2) K/mm3 [place] # (Auto) 0.5 (0.1-0.6) K/mm3 Eos # (Auto) 0.1 (0-0.3) K/mm3 Baso # (Auto) 0.1 (0.0-0.1) K/mm3 Abs Immat Gran (auto) 0.03 (0.00-0.031) K/mm3 Absolute Neuts (auto) 5.7 (1.3-6.7) K/mm3 Absolute Nucleated RBC 0.000 (0.0-0.012) K/mm3 Nucleated RBC % 0.0 (0.0-0.2) % Sodium 138 (137-145) mmol/L Potassium 4.1 (3.4-5.0) mmol/L Chloride 105 (98-107) mmol/L Carbon Dioxide 25 (22-30) mmol/L Anion Gap 8 (4-12) mmol/L BUN 8 L (9-20) mg/dL Creatinine 0.93 (0.7-1.3) mg/dL Estim Creat Clear Calc 73 ml/min Estimated GFR > 60 (59 - ) Glucose 123 H (65-110) mg/dL Calcium 9.0 (8.4-10.2) mg/dL Total Bilirubin 0.8 (0.2-1.3) mg/dL AST 24 (17-59) U/L ALT 18 (6-50) U/L Alkaline Phosphatase 57 (38-126) U/L Troponin I < 0.012 < 0.012 (0.000-0.034) ng/mL Total Protein 7.2 (6.3-8.2) g/dL Albumin 4.2 (3.5-5.1) g/dL Imaging Data Attestation: I personally reviewed and interpreted this imaging study as follows: Radiologist's impression: Impressions Chest X-Ray 02/12/25 16:43 Impression: No acute cardiopulmonary abnormality. ECG Data EKG #1: Attestation: I personally reviewed and interpreted this ECG as follows: ECG completion date: 02/12/25 ECG completion time: 15:36 Prior ECG tracings: available for review Interpretation: Normal sinus rhythm rate of 79, normal axis, normal intervals, no acute ST or T- wave changes. Comparison 01/31/2025: No significant change EKG #2: Attestation: I personally reviewed and interpreted this ECG as follows: ECG completion date: 02/12/25 ECG completion time: 19:18 Prior ECG tracings: available for review Interpretation: Normal sinus rhythm rate of 66, normal axis, normal intervals, no acute ST or T- wave changes. Comparison from earlier: No significant change Discharge Plan Discharge Clinical Impression: Atypical chest pain Patient Disposition: Home Condition: Stable Instructions: Antibiotic Form, Chest Pain (ED) Additional Instructions: Labs, chest x-ray, EKG were all reassuring and not indicative of our her damage at this time. Follow-up with your PCP in the next few days for re-evaluation. Return to the ED for any new or worsening symptoms. Patient Language: [place]i Prescriptions: No Action pantoprazole 40 mg tablet,delayed release (DR/EC) 40 mg PO QAM 30 Days Qty: 30 11RF Follow-up/Referrals: Nikolay Dinh MD [Primary Care Provider, [facility]]
[2025-02-12 16:34] LABS: Troponin I < 0.012 ng/mL (0.000-0.034)
--- NOTE | 2025-02-12 19:15 | PC.NURSE ---
Pt did a walking trail, no problems and O2 98-99%. Will continue to monitor.
--- NOTE | 2025-02-12 19:18 | ECG_ITS ---
Test Date: 2025-02-12 19:22:44 Measurements Intervals [place] Rate: 66 P: 29 MI: 129 QRS: 14 QRSD: 94 T: 2 QT: 362 QTc: 381 Interpretive Statements SINUS RHYTHM Compared to ECG 02/12/2025 15:36:40 No significant changes Electronically Signed On 02-12-2025 20:52:59 CDT by Alok Ruano D.O
[2025-02-12 19:51] LABS: Troponin I < 0.012 ng/mL (0.000-0.034)
== END 2025-02-12 20:31 | disposition home or self-care (01) ==
PROVIDERS: Emergency Medicine; Emergency Provider Student in an Organized Health Care Education/Training Program; PCP Family Medicine
DX: R07.89 Other chest pain (principal); I10 Essential (primary) hypertension; K21.9 Gastro-esophageal reflux disease without esophagitis
CPT/HCPCS: 36415; 71046; 80053; 84484; 85025; 93005; 99284